=== PATIENT | female | born 1965 | race Caucasian/White ===

== ENCOUNTER 2017-01-25 08:29 | Day surgery (SDC) | payer BC ==
[~2017-01-25] VITALS: Ht 177.8 cm; Wt 93.9 kg
[~2017-01-25 08:29] MED LIST: BELVIQ10 MG PO; NEURONTIN600 MG PO; NORCO 325-5 MG1 TAB PO; ULTRAM50 MG PO; VOLTAREN25 MG PO
== END 2017-01-25 10:45 | disposition short-term general hospital (02) ==
LOC: SURGOP 08:29
PROC: 0DJD8ZZ Inspection of Lower Intestinal Tract, Via Natural or Artificial Opening Endoscopic (ICD-10-PCS; principal; 2017-01-25)
DX: Z12.11 Encounter for screening for malignant neoplasm of colon (principal); E87.6 Hypokalemia; E78.5 Hyperlipidemia, unspecified; E66.9 Obesity, unspecified; Z68.33 Body mass index [BMI] 33.0-33.9, adult; Z87.891 Personal history of nicotine dependence; Z88.2 Allergy status to sulfonamides; Z91.041 Radiographic dye allergy status
CPT/HCPCS: J2250